=== PATIENT | male | born 1995 | race Caucasian/White ===

== ENCOUNTER 2016-11-25 20:50 | Emergency (ER) | payer OTHER | END 2016-11-25 22:27 | disposition home or self-care (01) | LOC: ER1 20:50 | DX: L02.413 Cutaneous abscess of right upper limb (principal); F17.210 Nicotine dependence, cigarettes, uncomplicated | CPT/HCPCS: 10060; 87070; 87205; 99283 ==

== ENCOUNTER 2016-11-29 12:49 | Emergency (ER) | payer MEDICAID | END 2016-11-29 14:40 | disposition home or self-care (01) | LOC: ER1 12:49 | DX: Z48.817 Encounter for surgical aftercare following surgery on the skin and subcutaneous tissue (principal); F17.210 Nicotine dependence, cigarettes, uncomplicated | CPT/HCPCS: 99282 ==